=== PATIENT | female | born 1935 | race Caucasian/White ===

== ENCOUNTER → 2017-02-18 | Outpatient (CLI) | payer MEDICARE, OTHER | LOC: MW.CHFP 08:00 | PROVIDERS: ATTEND Physician Assistant | DX: S46.912A Strain of unspecified muscle, fascia and tendon at shoulder and upper arm level, left arm, initial encounter (principal) | CPT/HCPCS: G0463 ==

== ENCOUNTER 2018-02-16 08:17 | Day surgery (SDC) | payer MEDICARE, OTHER ==
[~2018-02-16 08:17] MED LIST: Ciprofloxacin/Dexamethasone 0.3-0.1% Otic Susp 7.5 ML Bottle ONE; EPINEPHrine 1 MG/ML SDV ONE
--- NOTE | 2018-02-16 09:12 | PCM.PREANE ---
Preanesthetic Assessment - Anesthesia/Transfusion/Family Hx Anesthesia History: Prior Anesthesia Without Reaction Other Type of Anesthesia Reaction Comment: Denies any known problem in past, no known family hx:prblms Family History of Anesthesia Reaction: No Transfusion History: No Prior Transfusion(s) - Review of Systems General: No Symptoms Pulmonary: No Symptoms Cardiovascular: No Symptoms Gastrointestinal: No Symptoms Neurological: No Symptoms Other: Reports: None - Physical Assessment NPO Status Date: 02/15/18 Height: 1.65 m Weight: 67.132 kg ASA Class: 3 Airway Class: Mallampati = 1 Dentition: Reports: Dentures ROM/Head Extension: Full Lungs: Clear to Auscultation, Normal Respiratory Effort Cardiovascular: Regular Rate, Regular Rhythm - Allergies Allergies/Adverse Reactions: Allergies Allergy/AdvReac Type Severity Reaction Status Date / Time nickel Allergy Rash Verified 02/10/18 08:15 - Blood Blood Available: No - Anesthesia Plan Pre-Op Medication Ordered: None - Acknowledgements Anesthesia Type Planned: MAC Pt an Appropriate Candidate for the Planned Anesthesia: Yes Alternatives and Risks of Anesthesia Discussed w Pt/Guardian: Yes Pt/Guardian Understands and Agrees with Anesthesia Plan: Yes PreAnesthesia Questionnaire HEENT History: Reports: Other (See Below) Other HEENT History: wears glasses, has top and bottom dentures Cardiovascular History: Reports: Heart Failure, Hypertension Genitourinary History: Reports: None 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: Musculoskeletal History: Reports: Arthritis, Fracture Psychiatric History: Reports: Anxiety Endocrine/Metabolic History: Reports: Osteoporosis - Past Surgical History Head Surgeries/Procedures: Reports: None HEENT Surgical History: Reports: Cataract Surgery, Tonsillectomy Cardiovascular Surgical History: Reports: Valve Replacement Other Cardiovascular Surgeries/Procedures: angiogram-states everything was clear Female Surgical History: Reports: Tubal Ligation Musculoskeletal Surgical History: Reports: Other (See Below) Other Musculoskeletal Surgeries/Procedures:: surgical tx for fx left ankle - SUBSTANCE USE Smoking Status *Q: Never Smoker Days Per Week of Alcohol Use: 0 Number of Drinks Per Day: 0 Total Drinks Per Week: 0 Recreational Drug Use History: No - HOME MEDS Home Medications: Home Meds Ascorbic Acid [Vitamin C] 1,000 mg PO DAILY 01/23/15 [History] Calcium Citrate/Vitamin D3 [Calcium Citrate + Caplet] 1 tab PO DAILY 01/23/15 [ History] Cyanocobalamin (Vitamin B-12) [Vitamin B-12] 1 tab PO DAILY 01/23/15 [History] Denosumab [Prolia] 1 injection INJECT ASDIRECTED 01/23/15 [History] Flaxseed Oil [Flax Oil] 1 tab PO DAILY 01/23/15 [History] Lovastatin 20 mg PO DAILY 01/23/15 [History] Magnesium 1 tab PO DAILY 01/23/15 [History] Metoprolol Tartrate [Lopressor] 1 tab PO BID 01/23/15 [History] Zolpidem [Ambien] 1 tab PO BEDTIME PRN 01/23/15 [History] Aspirin [Adult Low Dose Aspirin EC] 1 tab PO DAILY 01/24/15 [History] ALPRAZolam [Alprazolam] 1 tab PO ASDIRECTED PRN 02/07/18 [History] Acetaminophen 1 tab PO ASDIRECTED PRN 02/07/18 [History] Latanoprost [Xalatan 0.005% Ophth Soln] 1 drop EYEBOTH ASDIRECTED 02/07/18 [ History] Multivitamin [Multivitamins] 1 tab PO DAILY 02/07/18 [History] - CURRENT (IN HOUSE) MEDS Current Meds: Current Medications Discontinued Medications Ciprofloxacin/Dexamethasone (Ciprodex Otic Susp) Confirm Administered Dose 7.5 ml .ROUTE .STK-MED ONE Stop: 02/16/18 07:33 Epinephrine HCl (Adrenalin) Confirm Administered Dose 1 mg .ROUTE .STK-MED ONE Stop: 02/16/18 07:33
[2018-02-16] MEDS ORDERED: Lactated Ringers 1,000 ML IV SCH (09:15)
[2018-02-16] MEDS ORDERED: fentaNYL 100 MCG/2 ML SDV ONE (09:37)
[2018-02-16] MEDS ORDERED: Lidocaine 2% 5 ML SDV ONE (09:37)
[2018-02-16] MEDS ORDERED: Propofol 200 MG/20 ML SDV ONE (09:37)
--- NOTE | 2018-02-16 10:22 | PCM.HPR ---
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
[2018-02-16] MEDS ORDERED: Clindamycin Phosphate in D5W 600 MG in Premix Bag 1 BAG IV ONE ×2 (10:26)
[2018-02-16] MEDS ORDERED: Glycopyrrolate 0.2 MG/ML SDV ONE (10:35)
--- NOTE | 2018-02-16 11:06 | PCM.POSTAN ---
POST ANESTHESIA ASSESSMENT - MENTAL STATUS Mental Status: Alert, Oriented - RESPIRATORY Respiratory Status: Respiratory Rate WNL, Airway Patent, O2 Saturation Stable - CARDIOVASCULAR CV Status: Pulse Rate WNL, Blood Pressure Stable - GASTROINTESTINAL GI Status: No Symptoms - POST OP HYDRATION Hydration Status: Adequate & Stable
--- NOTE | 2018-02-16 11:15 | PCM.OPNOTE ---
- General Post-Op/Procedure Note Condition: Good Free Text/Narrative:: Pre operative Diagnosis: Left otitis media and mixed hearing loss Post operative Diagnosis: Left otitis media and mixed hearing loss Procedure: Left Myringotomy with Tympanostomy tube Surgeon: Meenakshi Chou MD Anesthesia: General Anesthesiologist: Guevara SEARS Date of procedure: 02/16/2018 Indications: Left otitis media and mixed hearing loss Findings: Minimal Left middle ear serous effusion Operation Details: An informed consent for the procedure was obtained from parents. A time out was performed and the patient was brought back to the operating room and laid supine on the operating room table. Anesthesia was administered with a face mask. The left ear was addressed. An anterior inferior myringotomy incision was made in the pars tensa. Findings are as described above. Middle ear effusion was suctioned clear. An Valle tympanostomy tube was placed with an alligator forceps. Specimens: None IV fluids: None Disposition: PACU for recovery Follow up: In 1 week
--- NOTE | 2018-02-16 12:40 | PCM48HPAN ---
Post Anesthesia Note - EVALUATION WITHIN 48HRS OF ANESTHETIC Vital Signs in Normal Range: Yes Patient Participated in Evaluation: Yes Respiratory Function Stable: Yes Airway Patent: Yes Cardiovascular Function Stable: Yes Hydration Status Stable: Yes Pain Control Satisfactory: Yes Nausea and Vomiting Control Satisfactory: Yes Mental Status Recovered: Yes Resp Rate: 14
[2018-02-16 12:44] VITALS: BP 113/56
== END 2018-02-16 12:10 | disposition home or self-care (01) ==
LOC: MW.SDS 08:17
PROVIDERS: ATTEND Otolaryngology
DX: H65.92 Unspecified nonsuppurative otitis media, left ear (principal); F41.9 Anxiety disorder, unspecified; I25.10 Atherosclerotic heart disease of native coronary artery without angina pectoris; I50.9 Heart failure, unspecified; E78.00 Pure hypercholesterolemia, unspecified; E87.6 Hypokalemia; Z79.82 Long term (current) use of aspirin; Z79.899 Other long term (current) drug therapy; Z72.0 Tobacco use
CPT/HCPCS: 69436; J3010; J7120; A9270-GY; J0171; J2704

== ENCOUNTER 2019-01-11 06:13 | Day surgery (SDC) | payer MEDICARE, OTHER ==
--- NOTE | 2019-01-10 16:09 | PCM.HPR ---
H & P Addendum review - H & P Addendum Review Date of Original H & P: 01/05/19 Date Reviewed: 01/11/19 Time Reviewed: 07:55 Patient was Examined: No Changes
[2019-01-11] MEDS ORDERED: Propofol 200 MG/20 ML SDV ONE (07:19)
[2019-01-11] MEDS ORDERED: EPINEPHrine 1 MG/ML SDV ONE (07:22)
[2019-01-11] MEDS ORDERED: Gelatin Sponge,Absorbable 12-7 mm Sponge TOP ONE (07:22)
[2019-01-11] MEDS ORDERED: Ciprofloxacin/Dexamethasone 0.3-0.1% Otic Susp 7.5 ML Bottle ONE (07:23)
--- NOTE | 2019-01-11 07:24 | PCM.PREANE ---
Preanesthetic Assessment - Anesthesia/Transfusion/Family Hx Anesthesia History: Prior Anesthesia Without Reaction Other Type of Anesthesia Reaction Comment: Denies any known problem in past, no known family hx:prblms Family History of Anesthesia Reaction: No Transfusion History: No Prior Transfusion(s) Intubation History: Unknown - Review of Systems General: No Symptoms Pulmonary: No Symptoms Cardiovascular: No Symptoms Gastrointestinal: No Symptoms Neurological: No Symptoms Other: Reports: None - Physical Assessment O2 Sat by Pulse Oximetry: 98 Respiratory Rate: 16 Vital Signs: Last Vital Signs Temp 36.1 C 01/11/19 06:45 Pulse 67 01/11/19 06:45 Resp 16 01/11/19 06:45 BP 174/80 H 01/11/19 06:45 Pulse Ox 98 01/11/19 06:45 Height: 1.65 m Weight: 66.678 kg ASA Class: 3 Mental Status: Alert & Oriented x3 Airway Class: Mallampati = 2 Dentition: Reports: Dentures (upper and lower) Thyro-Mental Finger Breadths: 3 Mouth Opening Finger Breadths: 3 ROM/Head Extension: Full Lungs: Clear to Auscultation, Normal Respiratory Effort Cardiovascular: Regular Rate, Regular Rhythm - Allergies Allergies/Adverse Reactions: Allergies Allergy/AdvReac Type Severity Reaction Status Date / Time nickel Allergy Rash Verified 01/05/19 16:48 - Blood Blood Available: No - Anesthesia Plan Pre-Op Medication Ordered: None - Acknowledgements Anesthesia Type Planned: General Anesthesia Pt an Appropriate Candidate for the Planned Anesthesia: Yes Alternatives and Risks of Anesthesia Discussed w Pt/Guardian: Yes Pt/Guardian Understands and Agrees with Anesthesia Plan: Yes PreAnesthesia Questionnaire HEENT History: Reports: Other (See Below) Other HEENT History: wears glasses, has top and bottom dentures, increased pressure to left eye-"on eye drops to keep pressure down" Cardiovascular History: Reports: High Cholesterol, Hypertension Respiratory History: Reports: None Gastrointestinal History: Reports: None Genitourinary History: Reports: None 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: Musculoskeletal History: Reports: Arthritis, Fracture, Osteoporosis Neurological History: Reports: None Psychiatric History: Reports: Anxiety Endocrine/Metabolic History: Reports: Osteoporosis Hematologic History: Reports: None Immunologic History: Reports: None Oncologic (Cancer) History: Reports: None Dermatologic History: Reports: None - Past Surgical History Head Surgeries/Procedures: Reports: None HEENT Surgical History: Reports: Cataract Surgery, Tonsillectomy, Other (See Below) Other HEENT Surgeries/Procedures: previous surgery on left ear Cardiovascular Surgical History: Reports: Valve Replacement, Other (See Below) Other Cardiovascular Surgeries/Procedures: aortic valve replacement 2013 - no problems since with good excercise tolerance Female Surgical History: Reports: Tubal Ligation Musculoskeletal Surgical History: Reports: Other (See Below) Other Musculoskeletal Surgeries/Procedures:: surgical tx for fx left ankle - SUBSTANCE USE Smoking Status *Q: Never Smoker Recreational Drug Use History: No - HOME MEDS Home Medications: Home Meds Ascorbic Acid [Vitamin C] 1,000 mg PO DAILY 01/23/15 [History] Calcium Citrate/Vitamin D3 [Calcium Citrate + Caplet] 1 tab PO DAILY 01/23/15 [ History] Denosumab [Prolia] 1 injection INJECT ASDIRECTED 01/23/15 [History] Flaxseed Oil [Flax Oil] 1 tab PO DAILY 01/23/15 [History] Lovastatin 20 mg PO DAILY 01/23/15 [History] Magnesium 1 tab PO DAILY 01/23/15 [History] Metoprolol Tartrate [Lopressor] 1 tab PO BID 01/23/15 [History] Zolpidem [Ambien] 1 tab PO BEDTIME PRN 01/23/15 [History] Aspirin [Adult Low Dose Aspirin EC] 1 tab PO DAILY 01/24/15 [History] ALPRAZolam [Alprazolam] 1 tab PO ASDIRECTED PRN 02/07/18 [History] Acetaminophen 1 tab PO ASDIRECTED PRN 02/07/18 [History] Latanoprost [Xalatan 0.005% Ophth Soln] 1 drop EYEBOTH ASDIRECTED 02/07/18 [ History] Multivitamin [Multivitamins] 1 tab PO DAILY 02/07/18 [History] Cyanocobalamin (Vitamin B12) [Vitamin B12] 1,000 mcg PO DAILY 01/05/19 [History]
[2019-01-11] MEDS ORDERED: Lactated Ringers 1,000 ML IV SCH (07:30)
[2019-01-11] MEDS ORDERED: ePHEDrine 50 MG/ML SDV ONE (08:44)
--- NOTE | 2019-01-11 09:19 | PCM.OPNOTE ---
- General Post-Op/Procedure Note Condition: Good Free Text/Narrative:: Operative Procedure(s): Removal of non functional Left tympanostomy tube and patch myringoplasty. [ CPT 87068,[id number] ] Findings: Left tympanostomy tube - blocked with old blood clot Left AI small central perforation after tube removal; underlying middle ear - normal Pre Op Diagnosis: Non functional Left Tympanostomy tube Post-Op Diagnosis: Same Anesthesia Technique: General LMA Primary Surgeon: Meenakshi Chou Anesthesia Provider: Benoit SEARS EBL in mLs: 1 Condition: Good Free Text/Narrative:: Indications: Non functioning Left tympanostomy tube with old clotted blood - failed to re canalize with conservative management and precluding the view of underlying ME - mutual decision to remove and patch myringoplasty. Operation Details: An informed consent for the procedure was obtained. A time out was performed and the patient was brought back to the operating room and laid supine on the operating room table. Anesthesia was administered with an LMA. The left ear was addressed. Cerumen was cleared from the external auditory canal. The tympanostomy tube was carefully removed with a curved needle and an alligator forcep; findings as above; bleeding edges +. 4% trichloro acetic acid was applied to the edges of perforation with a very small patch of sterlized cigarette paper. Merogel soaked in ciprodex was also placed over. This concluded the procedure and patient was handed over to anesthesia for recovery. Specimens: Left tympanostomy tube IV fluids: 500 ml Disposition: PACU for recovery Follow up: In 1 week
--- NOTE | 2019-01-11 09:58 | PCM48HPAN ---
Post Anesthesia Note - EVALUATION WITHIN 48HRS OF ANESTHETIC Vital Signs in Normal Range: Yes Patient Participated in Evaluation: Yes Respiratory Function Stable: Yes Airway Patent: Yes Cardiovascular Function Stable: Yes Hydration Status Stable: Yes Pain Control Satisfactory: Yes Nausea and Vomiting Control Satisfactory: Yes Mental Status Recovered: Yes Resp Rate: 11 - COMMENTS/OBSERVATIONS Free Text/Narrative:: no anesthesia problems
[2019-01-11 10:46] VITALS: BP 129/56
== END 2019-01-11 10:00 | disposition home or self-care (01) ==
LOC: MW.SDS 06:13
PROVIDERS: ATTEND Otolaryngology
DX: T85.9XXA Unspecified complication of internal prosthetic device, implant and graft, initial encounter (principal); H93.8X2 Other specified disorders of left ear; I11.0 Hypertensive heart disease with heart failure; I50.9 Heart failure, unspecified; H91.90 Unspecified hearing loss, unspecified ear; E78.00 Pure hypercholesterolemia, unspecified; I25.10 Atherosclerotic heart disease of native coronary artery without angina pectoris; M19.90 Unspecified osteoarthritis, unspecified site; F41.9 Anxiety disorder, unspecified; M81.0 Age-related osteoporosis without current pathological fracture; Z79.82 Long term (current) use of aspirin; Z79.899 Other long term (current) drug therapy; Z95.4 Presence of other heart-valve replacement; Z98.890 Other specified postprocedural states; Z90.10 Acquired absence of unspecified breast and nipple; Z98.51 Tubal ligation status
CPT/HCPCS: 69610; A9270; J0171; J2704; J7120; 88300

== ENCOUNTER 2023-12-30 12:01 | Emergency (ER) | payer MEDICARE, OTHER ==
[2023-12-30] MEDS: Diphtheria,Pertussis(Acell),Tetanus Vaccine 0.5 ML Syringe IM ONE (12:31)
[2023-12-30] MEDS: Lidocaine/Epineph/Tetracaine 3 ML Syringe TOP ONE (12:32)
[2023-12-30] MEDS: Bacitracin Oint 1 GM U/D Packet TOP ONE (14:31)
[2023-12-30 16:09] VITALS: BP 146/73; PULSE 60
== END 2023-12-30 15:24 | disposition home or self-care (01) ==
LOC: MW.ED 12:01
DX: S01.01XA Laceration without foreign body of scalp, initial encounter (principal); S09.90XA Unspecified injury of head, initial encounter; I10 Essential (primary) hypertension; E78.00 Pure hypercholesterolemia, unspecified; Z91.048 Other nonmedicinal substance allergy status; Z79.899 Other long term (current) drug therapy; Z79.82 Long term (current) use of aspirin; Z23 Encounter for immunization; W01.198A Fall on same level from slipping, tripping and stumbling with subsequent striking against other object, initial encounter; Y93.01 Activity, walking, marching and hiking
CPT/HCPCS: 12001; 70450; 90471; 90715; 99284; A9270; 99282